=== PATIENT | male | born 1965 | race Caucasian/White ===

== ENCOUNTER 2019-03-06 11:46 | Emergency (ER) | payer OTHER ==
[~2019-03-06] VITALS: Ht 185.5 cm; Wt 86.4 kg
[~2019-03-06 11:46] MED LIST: CYCL10TA9 PO; HYDR-34 PO; HYDR-4226 PO; NAPR-1071 PO; OXYC-190 PO; OXYC1TAB16 PO; PRD20T PO
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
--- NOTE | 2019-03-06 12:35 | Diagnostic Imaging Report ---
Indication: Chest pain. Comparison: 06/14/2015. Discussion: AP view of the chest and four views of the right ribs were obtained. Normal heart size. No focal consolidation, pleural fluid, or pneumothorax. No displaced rib fracture or other osseous abnormality identified. Impression: 1. Negative right ribs. Dictated by: Dictated on workstation # [id number]
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
[2019-03-06] MEDS ORDERED: METH-313 PO (12:56)
--- NOTE | 2019-03-06 13:00 | NUR ---
Cervical collar cleared by Constantine Nogueira, ROB @ 1101.
[2019-03-06 13:04] VITALS: BP 135/91
== END 2019-03-06 13:04 | disposition home or self-care (01) ==
LOC: EDUNIT# 11:46 → ER 11:47
DX: M54.2 Cervicalgia (principal); R07.81 Pleurodynia; R40.2142 Coma scale, eyes open, spontaneous, at arrival to emergency department; R40.2252 Coma scale, best verbal response, oriented, at arrival to emergency department; R40.2362 Coma scale, best motor response, obeys commands, at arrival to emergency department; Z91.041 Radiographic dye allergy status; Z79.52 Long term (current) use of systemic steroids; Y04.2XXA Assault by strike against or bumped into by another person, initial encounter
CPT/HCPCS: 70450; 71101; 72125

== ENCOUNTER 2021-03-24 11:42 | Emergency (ER) | payer SELFPAY ==
[~2021-03-24] VITALS: Ht 185.4 cm; Wt 95.4 kg
[~2021-03-24 11:42] MED LIST changes: +CYCL10TA25 PO; -CYCL10TA9 PO; +METH-313 PO
--- NOTE | 2021-03-24 11:57 | ED Lower Extremity ---
General Stated Complaint: RIGHT FOOT PAIN, SWOLLEN Source: patient Exam Limitations: no limitations History of Present Illness Date Seen by Provider: Mar 24, 2021 Time Seen by Provider: 11:55 Initial Comments To ER with right foot pain. He was going out to start his car for work this morning at about 3 AM when he twisted his ankle. Subsequently he is unable to bear weight on the right leg due to pain over the lateral foot and ankle. He has his own crutches that he arrives with and an Cruz wrap. Onset: this morning Severity: moderate Pain/Injury Location: right foot, right ankle Modifying Factors: Worse With Movement Allergies and Home Medications Allergies Coded Allergies: shellfish derived (Verified Allergy, Unknown, 06/11/15) Uncoded Allergies: IV CONTRAST (Allergy, Unknown, 06/11/15) Patient Home Medication List Home Medication List Reviewed: Yes Cyclobenzaprine HCl (Cyclobenzaprine HCl) 10 Mg Tablet, 10 MG PO Q8H PRN for SPASMS Prescribed by: SNEHAL JAIME on 08/18/15 0945 Hydrocodone Bit/Acetaminophen (Lortab 7.5 Mg Tablet) 1 Each Tablet, 1 EACH PO Q6H Prescribed by: SNEHAL JAIME on 08/18/15 0945 Hydrocodone/Acetaminophen (Hydrocodone/Acetaminophen 5 MG/325 MG TAB) 1 Each Tablet, 1 EACH PO Q6H PRN for PAIN Prescribed by: MARCO A DEWEY on 06/11/15 1317 Methocarbamol (Robaxin-750) 750 Mg Tablet, 750 MG PO Q4H PRN for SPASMS Prescribed by: MARCO A DEWEY on 03/06/19 1256 Naproxen (Naprosyn) 500 Mg Tablet, 500 MG PO BID PRN for PAIN Prescribed by: SNEHAL JAIME on 08/18/15 0945 Oxycodone HCl/Acetaminophen (Endocet 7.5-325 mg Tablet) 1 Each Tablet, 1 EACH PO Q6H PRN for PAIN Prescribed by: SNEHAL JAIME on 06/14/15 1557 Oxycodone HCl/Acetaminophen (Percocet 7.5-325 mg Tablet) 1 Each Tablet, 1 EACH PO Q6H Prescribed by: SNEHAL JAIME on 06/29/15 1131 Prednisone (Prednisone) 20 Mg Tab, 40 MG PO DAILY Prescribed by: SNEHAL JAIME on 06/14/15 9708 Review of Systems Constitutional: see HPI EENTM: see HPI Respiratory: no symptoms reported Cardiovascular: no symptoms reported Genitourinary: no symptoms reported Musculoskeletal: see HPI Skin: no symptoms reported Psychiatric/Neurological: No Symptoms Reported Past Vktvpja-Otwjuf-Uiaskk Hx Past Medical History Surgeries: Yes (BENIGN "GROWTH" REMOVED FROM ABD, DISC REPAIR IN NECK) Orthopedic Respiratory: No Cardiac: No Neurological: No Gastrointestinal: Yes Crohns Disease Musculoskeletal: Yes (DISC PROBLEMS IN NECK) Endocrine: No Cancer: No Psychosocial: No Integumentary: No Blood Disorders: No Family Medical History No Pertinent Family Hx Physical Exam Vital Signs Vital Signs - First Documented 03/24/21 11:48 Temp 36.5 Pulse 100 Resp 18 B/P (MAP) 52/ Pulse Ox 96 O2 Flow Rate 142.00 Capillary Refill : Height, Weight, BMI Height: 6'2" Weight: 215lbs. oz. 97.989881jc; 25.00 BMI Method:Stated General Appearance: WD/WN, no apparent distress HEENT: PERRL/EOMI, normal ENT inspection Respiratory: no respiratory distress, no accessory muscle use Hips: bilateral hip non-tender, bilateral hip normal inspection, bilateral hip normal range of motion Legs: bilateral leg non-tender, bilateral leg normal inspection, bilateral leg normal range of motion Knees: bilateral knee non-tender, bilateral knee normal inspection, bilateral knee normal range of motion Ankles: right ankle pain, right ankle soft tissue tenderness Feet: right foot pain, right foot soft tissue tenderness, right foot swelling, right foot other (Tender to palpation over the fifth metatarsal head. There is no swelling to any part of the foot or ankle nor is there any erythema or ecchymosis.) Neurologic/Psychiatric: alert, normal mood/affect, oriented x 3 Skin: normal color, warm/dry Progress/Results/Core Measures Results/Orders My Orders Orders - MARCO A DEWEY APRN Ankle, Right, 3 Views (03/24/21 11:54) Foot, Right, 3 View (03/24/21 11:54) Hydrocodone/Apap 5/325 Tablet (Lortab 5 (03/24/21 12:00) Medications Given in ED Current Medications Medications Dose Ordered Sig/Oralia Route Start Time Stop Time Status Last Admin Dose Admin Acetaminophen/ Hydrocodone Bitart 1 ea ONCE ONCE PO 03/24/21 12:00 03/24/21 12:01 DC 03/24/21 12:05 1 EA Vital Signs/I&O 03/24/21 11:48 Temp 36.5 Pulse 100 Resp 18 B/P (MAP) 52/ Pulse Ox 96 O2 Flow Rate 142.00 Departure Impression Primary Impression: Sprain and strain of ankle Disposition: 01 HOME, SELF-CARE Condition: Stable Departure-Patient Inst. Decision time for Depature: 12:19 Referrals: NO,LOCAL PHYSICIAN (PCP) Primary Care Physician Add. Discharge Instructions: 1. Continue to use the crutches as needed for pain. When the pain subsides you can stop using the crutches. However if pain persist and you remain unable to bear weight on your foot then you need to follow-up with primary care next week to discuss repeat imaging. Elevate the foot is much as possible, Tylenol and ibuprofen for pain. Work/School Note: Work Release Form Date Seen in the Emergency Department: Mar 24, 2021 Return to Work: Mar 26, 2021 MARCO A DEWEY APRN Mar 24, 2021 11:57
[2021-03-24] MEDS ORDERED: HYDROcodone/APAP 5 MG/325 MG (LORTAB) TAB PO ONE (12:00)
--- NOTE | 2021-03-24 12:10 | Diagnostic Imaging Report ---
ANKLE, RIGHT, 3 VIEWS COMPARISON: Right foot radiographs performed concurrently INDICATION: Right ankle pain TECHNIQUE: Non-weight bearing AP, oblique, and lateral views. FINDINGS: No fracture or traumatic malalignment. No osteochondral lesion of the talar dome. No soft tissue swelling. IMPRESSION: 1. No acute fracture or traumatic malalignment. Dictated by: Dictated on workstation # [id number]
--- NOTE | 2021-03-24 12:10 | Diagnostic Imaging Report ---
FOOT, RIGHT, 3 VIEW INDICATION: Right foot pain COMPARISON: None available. TECHNIQUE: 3 nonweightbearing views of right foot. FINDINGS: No acute or healing fracture. No osseous erosion. Alignment is normal by nonweightbearing imaging. Small plantar calcaneal spur. IMPRESSION: No acute osseous abnormality in the right foot. Dictated by: Dictated on workstation # [id number]
[2021-03-24 12:32] VITALS: BP_SYST 52
== END 2021-03-24 12:33 | disposition home or self-care (01) ==
LOC: EDUNIT# 11:42 → ER 11:45
DX: S93.401A Sprain of unspecified ligament of right ankle, initial encounter (principal); X50.1XXA Overexertion from prolonged static or awkward postures, initial encounter
CPT/HCPCS: 73610; 73630

== ENCOUNTER → 2021-12-06 | Outpatient (CLI) | payer OTHER ==
--- NOTE | 2021-12-06 18:21 | Diagnostic Imaging Report ---
PROCEDURE: CT cervical spine without contrast. TECHNIQUE: Multiple contiguous axial images were obtained through the cervical spine without the use of intravenous contrast. Sagittal and coronal reformations were then performed. Auto Exposure Controls were utilized during the CT exam to meet ALARA standards for radiation dose reduction. INDICATION: Neck pain. Prior spinal fusion. COMPARISON: March 06, 2019. FINDINGS: The patient is status post a prior anterior cervical discectomy and fusion of C5-C6. Examination demonstrates new posterior fusion of C5-C6 with decompressive laminectomies. Hardware positioning appears appropriate. There are no findings of a screw fracture or evidence of osteolysis around the components. Cervical spine alignment is normal. There are normal relationships of the craniocervical junction. There are normal relationships of the lateral masses of C1 and C2. The facets are normally aligned. There is no facet joint or disc space widening. The vertebral body heights are maintained. There are no findings of an acute cervical spine fracture. C2-C3 demonstrates no significant stenosis. At C3-C4, there is mild uncovertebral spurring with mild narrowing of both neural foramina. There is no significant canal stenosis. At C4-C5, there is minimal disc bulge and tiny uncovertebral spurs without significant canal or foraminal stenosis. At the surgical level of C5-C6, the central canal has been decompressed. Small endplate spurs and facet hypertrophy result in [id number] narrowing of both neural foramina. At C6-C7, there is no significant stenosis. C7-T1 demonstrates no significant stenosis. The lung apices are clear. The soft tissues of the neck demonstrate no acute process. IMPRESSION: 1. Operative changes of an ACDF of C5-C6 as well as new posterior C5-C6 posterior fusion with decompressive laminectomies. Hardware positioning is appropriate without evidence of screw fracture or hardware complication. 2. Normal cervical spine alignment without acute osseous abnormality. 3. Background degenerative features with variable degrees of stenosis detailed above. No high-grade residual stenosis is evident by CT imaging. Dictated by: Dictated on workstation # [id number]
== END ==
LOC: RAD 14:52
PROVIDERS: ATTEND Neurological Surgery
DX: M47.812 Spondylosis without myelopathy or radiculopathy, cervical region (principal); M50.221 Other cervical disc displacement at C4-C5 level; M48.02 Spinal stenosis, cervical region; Z98.1 Arthrodesis status
CPT/HCPCS: 72125

== ENCOUNTER 2022-08-30 05:15 | Emergency (ER) | payer SELFPAY ==
[~2022-08-30] VITALS: Ht 185.4 cm; Wt 88.0 kg
[2022-08-30] MEDS ORDERED: DIVA500T15 (05:33)
[2022-08-30] MEDS ORDERED: RISP2TAB84 (05:33)
[2022-08-30] MEDS ORDERED: DULO60CA59 (05:33)
[2022-08-30] MEDS ORDERED: ACHD5005 (05:33)
[2022-08-30] MEDS ORDERED: DIAZ2TAB2 (05:33)
[2022-08-30] MEDS ORDERED: DIVA250T12 (05:33)
--- NOTE | 2022-08-30 06:08 | ED Lower Extremity ---
General Chief Complaint: Lower Extremity Stated Complaint: CALF PAIN,LEFT LEG Nursing Triage Note: c/o left calf pain 3 months ago now in left posterior thigh. reports chest pain when cramping leg pain occurs. states chest pain has been occuring x13 months. concerned for blood clot Source: patient Exam Limitations: no limitations History of Present Illness Date Seen by Provider: August 30, 2022 Time Seen by Provider: 06:03 Initial Comments Patient is a 57-year-old male history of mental health issues who presents to the emergency department with a chief complaint of pain in his left leg. Patient states that he had neck surgery about a year ago since that time he has had areas of progressive pain in the left calf, left popliteal fossa, left distal thigh and then groin. He states the pain is not in the whole leg. He states the leg feels "numb". He states it lasts for several minutes and then goes away. It can occur while he is working or while at rest. He was telling some people at work about it and they thought he might have a blood clot. He states when he has the pain in his leg he has pain in his head, he feels weak. He has never had a blood clot before. He denies chest pain or shortness of breath. No persistent cough. He is a smoker. Nothing seems to bring the pain on. Denies swelling in his leg. No back pain. no incontinence. He has not sought evaluation for this problem in the last year or seen his primary care doctor for this. Onset: other (1 year) Severity: severe Pain/Injury Location: left leg, left knee, left thigh, left other (groin) Method of Injury: unknown Allergies and Home Medications Allergies Coded Allergies: shellfish derived (Verified Allergy, Unknown, 06/11/15) Uncoded Allergies: IV CONTRAST (Allergy, Unknown, 06/11/15) Patient Home Medication List Home Medication List Reviewed: Yes Diazepam (Diazepam) 2 Mg Tablet, (Reported) Entered as Reported by: VERA MONROE on 08/30/22532 Last Action: New Order Divalproex Sodium (Divalproex Sodium ER) 500 Mg Tab.er.24h, (Reported) Entered as Reported by: VERA MONROE on 08/30/22532 Last Action: New Order Divalproex Sodium (Divalproex Sodium ER) 250 Mg Tab.er.24h, (Reported) Entered as Reported by: VERA MONROE on 08/30/22532 Last Action: New Order Duloxetine HCl (Duloxetine HCl) 60 Mg Capsule.dr, (Reported) Entered as Reported by: VERA MONROE on 08/30/22532 Last Action: New Order Hydrocodone/Acetaminophen (Hydrocodone-Acetamin 5-325 mg) 5 Mg-325 Mg Tablet, (R eported) Entered as Reported by: VERA MONROE on 08/30/22532 Last Action: New Order Risperidone (Risperidone) 2 Mg Tablet, (Reported) Entered as Reported by: VERA MONROE on 08/30/22532 Last Action: New Order Discontinued Medications Cyclobenzaprine HCl (Cyclobenzaprine HCl) 10 Mg Tablet, 10 MG PO Q8H PRN for SP ASMS Discontinued Reason: No Longer Taking Prescribed by: SNEHAL JAIME on 08/18/15944 Last Action: Discontinued Hydrocodone Bit/Acetaminophen (Lortab 7.5 Mg Tablet) 1 Each Tablet, 1 EACH PO Q6H Discontinued Reason: No Longer Taking Prescribed by: SNEHAL JAIME on 08/18/15944 Last Action: Discontinued Hydrocodone/Acetaminophen (Hydrocodone/Acetaminophen 5 MG/325 MG TAB) 1 Each Tablet, 1 EACH PO Q6H PRN for PAIN Discontinued Reason: No Longer Taking Prescribed by: MARCO A DEWEY on 06/11/15 1317 Last Action: Discontinued Methocarbamol (Robaxin-750) 750 Mg Tablet, 750 MG PO Q4H PRN for SPASMS Discontinued Reason: No Longer Taking Prescribed by: MARCO A DEWEY on 03/06/19 1256 Last Action: Discontinued Naproxen (Naprosyn) 500 Mg Tablet, 500 MG PO BID PRN for PAIN Discontinued Reason: No Longer Taking Prescribed by: SNEHAL JAIME on 08/18/15944 Last Action: Discontinued Oxycodone HCl/Acetaminophen (Endocet 7.5-325 mg Tablet) 1 Each Tablet, 1 EACH PO Q6H PRN for PAIN Discontinued Reason: No Longer Taking Prescribed by: SNEHAL JAIME on 06/14/15 8912 Last Action: Discontinued Oxycodone HCl/Acetaminophen (Percocet 7.5-325 mg Tablet) 1 Each Tablet, 1 EACH PO Q6H Discontinued Reason: No Longer Taking Prescribed by: SNEHAL JAIME on 06/29/15 1131 Last Action: Discontinued Prednisone (Prednisone) 20 Mg Tab, 40 MG PO DAILY Discontinued Reason: No Longer Taking Prescribed by: SNEHAL JAIME on 06/14/15 1557 Last Action: Discontinued Review of Systems Constitutional: see HPI Respiratory: no symptoms reported Cardiovascular: no symptoms reported Gastrointestinal: no symptoms reported Genitourinary: other (has to "push" out urine) Musculoskeletal: muscle cramps (left leg) Skin: no symptoms reported Psychiatric/Neurological: Numbness (left leg) All Other Systems Reviewed Negative Unless Noted: Yes Past Jafuijt-Owqfyi-Gwplvo Hx Patient Social History Tobacco Use?: No Smoking Status: Former Smoker Substance use?: No Alcohol Use?: No Pt feels they are or have been: No Immunizations Up To Date First/Initial COVID19 Vaccinat: x3 Second COVID19 Vaccination Mauricio: MAY Past Medical History Surgery/Hospitalization HX: chron's disease, tbi, cervical disc repair, abdominal tumor. Surgeries: Yes (BENIGN "GROWTH" REMOVED FROM ABD, DISC REPAIR IN NECK) Orthopedic Respiratory: No Cardiac: No Neurological: No Gastrointestinal: Yes Crohns Disease Musculoskeletal: Yes (DISC PROBLEMS IN NECK) Endocrine: No Cancer: No Psychosocial: No Integumentary: No Blood Disorders: No Family Medical History No Pertinent Family Hx Physical Exam Vital Signs Vital Signs - First Documented 08/30/22 05:25 Temp 36.8 Pulse 84 Resp 16 B/P (MAP) 136/81 (99) Pulse Ox 97 O2 Delivery Room Air Capillary Refill : Less Than 3 Seconds Height, Weight, BMI Height: 6'2" Weight: 215lbs. oz. 97.283015km; 25.00 BMI Method:Stated General Appearance: WD/WN, no apparent distress HEENT: PERRL/EOMI Cardiovascular: regular rate, rhythm, other (2+ left femoral pulse; 1+ left DP and PT pulses) Respiratory: lungs clear, normal breath sounds, no respiratory distress, no accessory muscle use Gastrointestinal: normal bowel sounds, soft Back: normal inspection, no vertebral tenderness Hips: bilateral hip non-tender, bilateral hip normal inspection, bilateral hip normal range of motion, bilateral hip no evidence of injury Legs: bilateral leg non-tender, bilateral leg normal inspection, bilateral leg normal range of motion, bilateral leg no evidence of injury; left leg other (NO SWELLING TO THE LEFT LEG. NO CALF TENDERNESS; NEG RADHA'S; ENTIRE LEG IS SOFT AN D SUPPLE WITH NORMAL COLOR) Knees: bilateral knee non-tender, bilateral knee normal inspection, bilateral knee normal range of motion, bilateral knee no evidence of injury Ankles: bilateral ankle non-tender, bilateral ankle normal inspection, bilateral ankle normal range of motion, bilateral ankle no evidence of injury Feet: bilateral foot non-tender, bilateral foot normal inspection, bilateral foot normal range of motion, bilateral foot no evidence of injury Neurologic/Tendon: normal sensation, normal motor functions, normal tendon functions Neurologic/Psychiatric: no motor/sensory deficits, alert, normal mood/affect, oriented x 3 Skin: normal color, warm/dry, other (scattered superficial ulcerations to skin throughout body. no signs of cellulitis; ) Progress/Results/Core Measures Results/Orders Lab Results Laboratory Tests Test 08/30/22 06:29 Range/Units Sodium Level 139 135-145 MMOL/L Potassium Level 4.0 3.6-5.0 MMOL/L Chloride Level 107 98-107 MMOL/L Carbon Dioxide Level 24 21-32 MMOL/L Anion Gap 8 5-14 MMOL/L Blood Urea Nitrogen 22 H 7-18 MG/DL Creatinine 0.89 0.60-1.30 MG/DL Estimat Glomerular Filtration Rate 101 BUN/Creatinine Ratio 25 Glucose Level 114 H 70-105 MG/DL Calcium Level 9.8 8.5-10.1 MG/DL My Orders Orders - RALF SIERRA MD Basic Metabolic Panel (08/30/22 06:20) Vital Signs/I&O 08/30/22 08/30/22 05:25 07:23 Temp 36.8 36.8 Pulse 84 84 Resp 16 16 B/P (MAP) 136/81 (99) 136/81 Pulse Ox 97 97 O2 Delivery Room Air Room Air Blood Pressure Mean: 99 Departure Impression Primary Impression: Muscle cramps Disposition: 01 HOME, SELF-CARE Condition: Stable Departure-Patient Inst. Decision time for Depature: 06:24 Referrals: BEULAH WELDON DO (PCP/Family) Primary Care Physician Patient Instructions: Muscle Spasm ED Add. Discharge Instructions: Drink plenty of fluids to stay well-hydrated. You should take a good dhyx-rco-[id number] daily multivitamin. If you have persistent cramps/muscle aches in your legs, moist heat will help relieve the pain. Please follow-up with your primary care physician for further work-up of these cramps as they have been going on for a year. You do not have any findings concerning for blood clot in the emergency department today. Work/School Note: Work Release Form Date Seen in the Emergency Department: August 30, 2022 Return to Work: August 30, 2022 RALF SIERRA MD August 30, 2022 06:08
[2022-08-30 06:49] LABS: CALCIUM 9.8 MG/DL (8.5-10.1)
[2022-08-30 06:53] LABS: CREATININE SERUM 0.89 MG/DL (0.60-1.30)
[2022-08-30 07:23] VITALS: BP 136/81
== END 2022-08-30 07:23 | disposition home or self-care (01) ==
LOC: EDUNIT# 05:15 → ER 05:18
DX: R25.2 Cramp and spasm (principal); Z87.891 Personal history of nicotine dependence
CPT/HCPCS: 36415; 80048; 99285